=== PATIENT | female | born 1970 | race American Indian/Alaskan Native ===

== ENCOUNTER 2017-02-14 15:13 | Emergency (ER) | payer OTHER ==
[2017-02-14] MEDS ORDERED: ATROVENT IH ONE ×3 (16:43→16:52)
[2017-02-14] MEDS ORDERED: PROVENTIL IH ONE ×3 (16:44→16:52)
[2017-02-14] MEDS ORDERED: MAGNESIUM SULFATE 2GM/50ML 2 GM/50 ML BAG IV ONE (16:45)
[2017-02-14] MEDS: MAGNESIUM SULFATE 2GM/50ML 2 GM/50 ML BAG IV ONE (16:54)
--- NOTE | 2017-02-14 17:08 | Emergency Department Report ---
ED Asthma HPI - General Chief Complaint: Adult Asthma Stated Complaint: COUGH Time Seen by Provider: 02/14/17 17:00 Source: patient, RN notes reviewed, old records reviewed Mode of arrival: Ambulatory Limitations: No Limitations - History of Present Illness Initial Comments: This is a 46-year-old female, the patient is previously unknown to this provider , she is a past medical history of asthma, childhood onset, no lifetime intubations that she is aware of, reports multiple hospital admissions. Presents to the ER with sore throat, tonsillar pain, cough, mucus production, chest wall pain, wheezing. Reports symptoms are typical of prior asthma exacerbations. No DVT or pulmonary embolus risk factors; no leg pain, no leg swelling, reports not being , does not take control, no recent trips or periods of immobility. MD Complaint: "asthma attack", shortness of breath, wheezing -: Gradual, days(s) Asthma History: childhood onset Severity: moderate Context: recent URI Associated Symptoms: dry cough, chest pain (chest wall pain with coughing) - Related Data Home Medications Medication Instructions Recorded Confirmed Last Taken Duloxetine HCl [Cymbalta] 60 mg PO BID 01/24/13 03/18/15 09/01/14 Gabapentin [Neurontin] 450 mg PO BID 01/24/13 03/18/15 09/01/14 Oxycodone HCl [Oxycodone] 15 mg PO QID 01/24/13 03/18/15 09/01/14 Baclofen [Lioresal] 10 mg PO BID 09/01/14 03/18/15 09/01/14 Diazepam [Valium] 10 mg PO Q6H PRN 09/01/14 03/18/15 09/01/14 oxyCODONE ER [OxyCONTIN] 10 mg PO Q12H 09/01/14 03/18/15 09/01/14 Previous Rx's Medication Instructions Recorded Last Taken Type Albuterol Sulfate [Albuterol 0.63%] 0.63 mg IH TID PRN #30 ml 02/27/13 07/18/13 20:00 Rx Albuterol Sulfate [Ventolin HFA] 2 puff IH Q4H PRN #1 hfa.aer.ad 02/27/13 Rx ALBUTEROL Inhaler [ProAir HFA 2 puff IH QID PRN #1 inhalation 03/18/15 Unknown Rx Inhaler] Albuterol *Only Ed* [Proventil 2.5 mg IH Q4H PRN #25 nebu 03/18/15 Unknown Rx 0.5% NEBS] Azithromycin [Zithromax TAB] 500 mg PO QDAY #3 tablet 03/18/15 Unknown Rx Prednisone [predniSONE 10 mg 10 mg PO .TAPER #1 tab.ds.pk 03/18/15 Unknown Rx (6-Day Pack, 21 Tabs)] Acetaminophen [Tylenol Arthritis] 650 mg PO Q6HR PRN #30 tablet.er 02/14/17 Unknown Rx Albuterol Sulfate [Albuterol 0.63% 0.63 mg IH Q4HR PRN #2 ml 02/14/17 Unknown Rx NEBS] Albuterol Sulfate [Proair 90 mcg IH Q4HR PRN #2 aer.pow.ba 02/14/17 Unknown Rx Respiclick] Benzonatate [Tessalon Perles] 100 mg PO Q8HR PRN #30 capsule 02/14/17 Unknown Rx Fluticasone [Flonase] 1 spray NS QDAY #1 bottle 02/14/17 Unknown Rx Ibuprofen [Motrin] 600 mg PO Q8H PRN #30 tablet 02/14/17 Unknown Rx Ipratropium [place] [Atrovent Hfa] 12.9 gm IH Q4HR #2 hfa.aer.ad 02/14/17 Unknown Rx Ipratropium [Atrovent NEB] 0.5 mg IH Q4HR #2 ml 02/14/17 Unknown Rx predniSONE [Deltasone] 40 mg PO QDAY #8 tab 02/14/17 Unknown Rx Allergies Allergy/AdvReac Type Severity Reaction Status Date / Time aspirin Allergy Unknown Verified 02/14/17 16:50 naproxen Allergy Swelling Verified 03/28/14 19:38 prochlorperazine edisylate Allergy Shortness Verified 03/28/14 19:38 [From Compazine] of Breath prochlorperazine maleate Allergy Shortness Verified 03/28/14 19:38 [From Compazine] of Breath ED Review of Systems ROS: Stated complaint: COUGH Other details as noted in HPI Constitutional: malaise, weakness ENT: denies: hearing loss Respiratory: cough, shortness of breath, wheezing Cardiovascular: chest pain Gastrointestinal: denies: nausea Musculoskeletal: arthralgia Skin: denies: lesions Neurological: denies: weakness ED Past Medical Hx - Past Medical History Previous Medical History?: Yes Hx Psychiatric Treatment: Yes (depression, anxiety) Hx Asthma: Yes Additional medical history: occipital neuralgia - Surgical History Past Surgical History?: Yes Hx Cholecystectomy: Yes Hx Breast Surgery: Yes Additional Surgical History: nerve stimulator x4. tubal ligation - Social History Smoking Status: Never Smoker Substance Use Type: None - Medications Home Medications: Home Medications Medication Instructions Recorded Confirmed Last Taken Type Duloxetine HCl [Cymbalta] 60 mg PO BID 01/24/13 03/18/15 09/01/14 History Gabapentin [Neurontin] 450 mg PO BID 01/24/13 03/18/15 09/01/14 History Oxycodone HCl [Oxycodone] 15 mg PO QID 01/24/13 03/18/15 09/01/14 History Albuterol Sulfate [Albuterol 0.63%] 0.63 mg IH TID PRN #30 ml 02/27/13 03/18/15 07/18/13 20:00 Rx Albuterol Sulfate [Ventolin HFA] 2 puff IH Q4H PRN #1 hfa.aer.ad 02/27/1309/01/14 Rx Baclofen [Lioresal] 10 mg PO BID 09/01/14 03/18/15 09/01/14 History Diazepam [Valium] 10 mg PO Q6H PRN 09/01/14 03/18/15 09/01/14 History oxyCODONE ER [OxyCONTIN] 10 mg PO Q12H 09/01/14 03/18/15 09/01/14 History ALBUTEROL Inhaler [ProAir HFA 2 puff IH QID PRN #1 inhalation 03/18/15 Unknown Rx Inhaler] Albuterol *Only Ed* [Proventil 2.5 mg IH Q4H PRN #25 nebu 03/18/15 Unknown Rx 0.5% NEBS] Azithromycin [Zithromax TAB] 500 mg PO QDAY #3 tablet 03/18/15 Unknown Rx Prednisone [predniSONE 10 mg 10 mg PO .TAPER #1 tab.ds.pk 03/18/15 Unknown Rx (6-Day Pack, 21 Tabs)] Acetaminophen [Tylenol Arthritis] 650 mg PO Q6HR PRN #30 tablet.er 02/14/17 Unknown Rx Albuterol Sulfate [Albuterol 0.63% 0.63 mg IH Q4HR PRN #2 ml 02/14/17 Unknown Rx NEBS] Albuterol Sulfate [Proair 90 mcg IH Q4HR PRN #2 aer.pow.ba 02/14/17 Unknown Rx Respiclick] Benzonatate [Tessalon Perles] 100 mg PO Q8HR PRN #30 capsule 02/14/17 Unknown Rx Fluticasone [Flonase] 1 spray NS QDAY #1 bottle 02/14/17 Unknown Rx Ibuprofen [Motrin] 600 mg PO Q8H PRN #30 tablet 02/14/17 Unknown Rx Ipratropium [place] [Atrovent Hfa] 12.9 gm IH Q4HR #2 hfa.aer.ad 02/14/17 Unknown Rx Ipratropium [Atrovent NEB] 0.5 mg IH Q4HR #2 ml 02/14/17 Unknown Rx predniSONE [Deltasone] 40 mg PO QDAY #8 tab 02/14/17 Unknown Rx ED Physical Exam - General Limitations: No Limitations General appearance: alert, in no apparent distress - Head Head exam: Present: atraumatic, normocephalic - Eye Eye exam: Present: normal appearance, PERRL, EOMI. Absent: nystagmus - ENT ENT exam: Present: normal exam, normal orophraynx, mucous membranes moist, normal external ear exam - Neck Neck exam: Present: normal inspection, full ROM. Absent: tenderness, meningismus - Respiratory Respiratory exam: Present: respiratory distress, wheezes. Absent: rales, rhonchi, stridor, chest wall tenderness, accessory muscle use, decreased breath sounds, prolonged expiratory - Cardiovascular Cardiovascular Exam: Present: normal rhythm, tachycardia, normal heart sounds. Absent: bradycardia, irregular rhythm, systolic murmur, diastolic murmur, rubs, gallop - GI/Abdominal GI/Abdominal exam: Present: soft, normal bowel sounds. Absent: distended, tenderness, guarding, rebound, rigid, pulsatile mass - Extremities Exam Extremities exam: Present: normal inspection, full ROM, normal capillary refill. Absent: tenderness, pedal edema, joint swelling, calf tenderness - Back Exam Back exam: Present: normal inspection, full ROM. Absent: tenderness, CVA tenderness (R), CVA tenderness (L), muscle spasm, paraspinal tenderness, vertebral tenderness - Neurological Exam Neurological exam: Present: alert, oriented X3, other (Extraocular movements intact. Tongue midline. No facial droop. Facial sensation intact to light touch in the V1, V2, V3 distribution bilaterally. 5 and 5 strength in 4 extremities.. Sensation is intact to light touch in 4 extremities.). Absent: motor sensory deficit - Psychiatric Psychiatric exam: Present: normal affect, normal mood - Skin Skin exam: Present: warm, dry, intact, normal color. Absent: rash ED Course Vital Signs 02/14/17 02/14/17 02/14/17 16:34 16:45 16:46 Temperature Pulse Rate 116 H 95 H Respiratory 24 17 Rate Blood Pressure 171/97 Blood Pressure [Left] O2 Sat by Pulse 97 98 98 Oximetry 02/14/17 02/14/17 02/14/17 16:54 17:00 17:16 Temperature Pulse Rate 101 H 112 H Respiratory 24 14 18 Rate Blood Pressure Blood Pressure [Left] O2 Sat by Pulse 98 96 95 Oximetry 02/14/17 02/14/17 02/14/17 17:30 17:46 18:00 Temperature Pulse Rate 111 H 119 H 121 H Respiratory 9 L 24 14 Rate Blood Pressure Blood Pressure [Left] O2 Sat by Pulse 98 96 98 Oximetry 02/14/17 02/14/17 02/14/17 18:29 18:30 18:46 Temperature Pulse Rate 121 H 121 H 118 H Respiratory 17 17 15 Rate Blood Pressure 131/72 131/72 Blood Pressure [Left] O2 Sat by Pulse 98 96 98 Oximetry 02/14/17 02/14/17 19:59 20:45 Temperature 99.2 F Pulse Rate 117 H Respiratory 20 20 Rate Blood Pressure Blood Pressure 122/72 [Left] O2 Sat by Pulse 98 Oximetry - Reevaluation(s) Reevaluation #1: 02/14/17 18:15 Differential diagnosis: Asthma exacerbation, viral syndrome, pneumonia, bronchitis, bronchiectasis, sinusitis Assessment and plan: 46-year-old female with cough, wheezing, chest wall pain, sore throat, no pulmonary embolus or DVT risk factors, low risk by well's criteria, with wheezing, and shortness of breath, most likely asthma exacerbation. Pharyngeal exam unremarkable, low risk by Cent[employer] criteria (no adenopathy, no fever, positive cough, no exudates) patient will be treated with albuterol, Atrovent, steroids, magnesium sulfate, and IV fluids. Low risk by heart score, low risk by CRISTINO score, chest wall pain is reproducible, and present for a few days. As for the [employer] clinical policy, myocardial infarction may be excluded with 1 set of troponins symptoms have been present for greater than 8 hours. Reevaluation #2: 02/14/17 18:47 Very tachycardic, heart rate 120. Very tremulous, suspect this is secondary to albuterol. Patient is still endorsing chest wall pain, troponin negative as expected. EKG has motion artifact, but appears to be morphologically unchanged from prior EKG. Additional fluids, pain medication ordered, d-dimer ordered. Reevaluation #3: 02/14/17 20:30 Feels improved. Wheezing improved. Tachycardia still present, this is most likely presents secondary to the albuterol quantity. D-dimer is negative, troponin negative 2, the patient is able to walk without desaturating. Leukocytosis is appreciated, this is most likely secondary to stress demargination, x-ray of the chest appears negative, therefore do not think antibiotic therapy is necessary at this time. Patient will be discharged with prescription for albuterol, Atrovent, steroids, cough medication, pain medication, instructions to closely follow-up. Return precautions were reviewed extensively. 02/14/17 20:37 Patient reports she is able to tolerate ibuprofen and Motrin, and does not take aspirin secondary to her asthma. She does not have a formal NSAID allergy. ED Medical Decision Making - Lab Data Result diagrams: 02/14/17 17:15 02/14/17 17:15 Vital Signs 02/14/17 02/14/17 16:45 16:54 Pulse Rate 116 H Respiratory 24 24 Rate Blood Pressure 171/97 O2 Sat by Pulse 98 98 Oximetry Lab Results 02/14/17 02/14/17 02/14/17 Range/Units 17:15 17:15 17:15 WBC 19.1 H (4.5-11.0) K/mm3 RBC 4.78 (3.65-5.03) M/mm3 Hgb 14.1 (10.1-14.3) gm/dl Hct 42.5 (30.3-42.9) % MCV 89 (79-97) fl MCH 30 (28-32) pg MCHC 33 (30-34) % RDW 13.3 (13.2-15.2) % Plt Count 292 (140-440) K/mm3 PT 14.4 (12.2-14.9) Sec. INR 1.07 (0.87-1.13) Sodium 141 (137-145) mmol/L Potassium 3.5 L (3.6-5.0) mmol/L Chloride 103.1 (98-107) mmol/L Carbon Dioxide 24 (22-30) mmol/L Anion Gap 17 mmol/L BUN 14 (7-17) mg/dL Creatinine 0.6 L (0.7-1.2) mg/dL Estimated GFR > 60 ml/min BUN/Creatinine Ratio 23 % Glucose 126 H (65-100) mg/dL Calcium 8.4 (8.4-10.2) mg/dL Troponin T < 0.010 (0.00-0.029) ng/mL HCG, Quant (0-4) mIU/mL // Range/Units 17:15 WBC (4.5-11.0) K/mm3 RBC (3.65-5.03) M/mm3 Hgb (10.1-14.3) gm/dl Hct (30.3-42.9) % MCV (79-97) fl MCH (28-32) pg MCHC (30-34) % RDW (13.2-15.2) % Plt Count (140-440) K/mm3 PT (12.2-14.9) Sec. INR (0.87-1.13) Sodium (137-145) mmol/L Potassium (3.6-5.0) mmol/L Chloride (98-107) mmol/L Carbon Dioxide (22-30) mmol/L Anion Gap mmol/L BUN (7-17) mg/dL Creatinine (0.7-1.2) mg/dL Estimated GFR ml/min BUN/Creatinine Ratio % Glucose (65-100) mg/dL Calcium (8.4-10.2) mg/dL Troponin T (0.00-0.029) ng/mL HCG, Quant < 2 (0-4) mIU/mL - EKG Data -: EKG Interpreted by Me Rate: tachycardia - EKG Data 02/14/17 18:48 Sinus tachycardia, 118 bpm, normal axis, QTC prolonged, high left ventricular voltage, not morphologically consistent with STEMI, appears unchanged when compared to prior. - Radiology Data Radiology results: image reviewed interpreted by me: X-ray the chest is negative for acute disease Critical care attestation.: If time is entered above; I have spent that time in minutes in the direct care of this critically ill patient, excluding procedure time. ED Disposition Clinical Impression: Acute bronchitis Qualifiers: Bronchitis organism: other organism Qualified Code(s): J20.8 - Acute bronchitis due to other specified organisms Disposition: - TO HOME OR SELFCARE Is pt being admited?: No Does the pt Need Aspirin: No Condition: Stable Instructions: Acute Bronchitis (ED) Additional Instructions: Take the breathing medicine, cough medicine, albuterol, Atrovent, steroids as directed. Symptoms will likely take 4-6 weeks to completely resolve. Follow up with a primary care doctor or a lung doctor within the next 2-3 weeks. Return to the ER right away with new pain, worsened pain, migration of pain, fevers, chills, lethargy, irritability, projectile vomiting, change in mental status, inability to tolerate liquid feeds, severe shortness of breath. Prescriptions: Acetaminophen [Tylenol Arthritis] 650 mg PO Q6HR PRN #30 tablet.er PRN Reason: Pain Albuterol Sulfate [Albuterol 0.63% NEBS] 0.63 mg IH Q4HR PRN #2 ml PRN Reason: Wheezing Albuterol Sulfate [Proair Respiclick] 90 mcg IH Q4HR PRN #2 aer.pow.ba PRN Reason: Wheezing Benzonatate [Tessalon Perles] 100 mg PO Q8HR PRN #30 capsule PRN Reason: Cough Fluticasone [Flonase] 1 spray NS QDAY #1 bottle Ibuprofen [Motrin] 600 mg PO Q8H PRN #30 tablet PRN Reason: Pain Ipratropium [Atrovent NEB] 0.5 mg IH Q4HR #2 ml Ipratropium [place] [Atrovent Hfa] 12.9 gm IH Q4HR #2 hfa.aer.ad predniSONE [Deltasone] 40 mg PO QDAY #8 tab Referrals: PRIMARY CARE, [Primary Care Provider] - 3-5 Days ALLEY MAGUIRE MD [Staff Physician] - 3-5 Days VERONICA SCHAFFER MD [Staff Physician] - 3-5 Days
[2017-02-14 17:49] LABS: Anion Gap 17 mmol/L; BUN/Creatinine Ratio 23; Blood Urea Nitrogen 14 mg/dL (7-17); Calcium 8.4 mg/dL (8.4-10.2); Carbon Dioxide 24 mmol/L (22-30); Chloride 103.1 mmol/L (98-107); Glucose 126 mg/dL (65-100); Hematocrit 42.5 % (30.3-42.9); Hemoglobin 14.1 gm/dl (10.1-14.3); Mean Corpuscular HGB Conc 33 % (30-34); Mean Corpuscular Hemoglobin 30 pg (28-32); Mean Corpuscular Volume 89 fl (79-97); Platelet Count 292 K/mm3 (140-440); Potassium 3.5 mmol/L (3.6-5.0); Red Blood Count 4.78 M/mm3 (3.65-5.03); Red Cell Distribution Width 13.3 % (13.2-15.2); Sodium 141 mmol/L (137-145); White Blood Count 19.1 K/mm3 (4.5-11.0)
[2017-02-14 18:16] LABS: INR 1.07 (0.87-1.13)
[2017-02-14] MEDS: NACL 0.9% 1000 ML 1,000 ML IV ONE ×2 (18:26→22:11)
[2017-02-14] MEDS: TORADOL IV ONE (18:26)
[2017-02-14] MEDS: LIDOCAINE VISCOUS 2% PO ONE (18:27)
[2017-02-14] MEDS: TYLENOL PO ONE (18:59)
[2017-02-14 20:47] VITALS: BP 122/72
--- NOTE | 2017-02-15 07:49 | XRay Report ---
AP CHEST: HISTORY: Cough, chest tightness AP view of the chest demonstrates a normal mediastinal and cardiac contour with clear lungs and normal bony and soft tissue structures. IMPRESSION: Unremarkable AP chest.
== END 2017-02-14 21:30 | disposition home or self-care (01) ==
LOC: ED 15:13
DX: J20.8 Acute bronchitis due to other specified organisms (principal); J45.909 Unspecified asthma, uncomplicated
CPT/HCPCS: 36415; 71010; 80048; 84484; 84702; 85027; 85379; 85610; 93005; 93010; 96361; 96365; 96375; 99284; J1885; J2930; J3475; J7030